=== PATIENT | female | born 1955 | race Hispanic/Latino ===

== ENCOUNTER 2016-11-16 11:52 | Outpatient (CLI) | payer MEDICARE, OTHER ==
--- NOTE | 2016-11-16 13:15 | Mammography Report ---
BILATERAL DIGITAL DIAGNOSTIC MAMMOGRAM with CAD and LEFT BREAST ULTRASOUND: 11/16/16 11:52:00 CLINICAL: Palpable left breast mass. COMPARISON:None. FINDINGS: The breasts are heterogeneously dense, which may obscure small masses and the breasts are sufficiently dense to limit the sensitivity of mammography.A 1.4 cm spiculated lower inner mass of the left breast correlates with the palpable lump. The right breast is negative. Ultrasound of the left breast (including all four quadrants and the retroareolar area) was performed and demonstrated an irregular solid hypoechoic shadowing mass at 9 o'clock 3 cm from the nipple. It measures 1.2 x 1.1 x 1.2 cm and corresponds to the mammographic mass. Ultrasound of the left axilla demonstrated no suspicious lymph nodes. IMPRESSION: Suspicious 1.2 cm left breast mass at 9 o'clock. BI-RADS CATEGORY: 5 - - Highly Suggestive of Malignancy RECOMMENDATION: Ultrasound guided needle core biopsy of the left breast. I discussed the findings and the recommendation for needle core biopsy of the left breast with the patient at the time of the examination. ACR BI-RADS MAMMOGRAPHIC CODES: 0 = Needs additional imaging evaluation; 1 = Negative; 2 = Benign; 3 = Probably benign; 4 = Suspicious; 5 = Malignant; 6 = Known biopsy-proven malignancy COMMENT: 1. Dense breast tissue, i.e., adenosis, fibrocystic changes, etc., may obscure an underlying neoplasm. 2. Approximately 10% of cancers are not detected with mammography. 3. A negative mammography report should not delay biopsy if a clinically suspicious mass is present. COMMENT: Patient follow-up letters are generated by our [employer] application.
== END 2016-11-16 11:53 | disposition home or self-care (01) ==
LOC: SPVWC 11:52
PROVIDERS: ATTEND Internal Medicine
DX: N63 Unspecified lump in breast (principal); R92.8 Other abnormal and inconclusive findings on diagnostic imaging of breast
CPT/HCPCS: 76641; G0204; 77066

== ENCOUNTER 2016-11-24 14:30 | Outpatient (CLI) | payer OTHER ==
--- NOTE | 2016-11-24 15:57 | Mammography Report ---
LEFT DIGITAL DIAGNOSTIC MAMMOGRAM: 11/24/16 14:30:00 CLINICAL: For clip placement immediately status post ultrasound biopsy. COMPARISON:11/16/16 FINDINGS: A biopsy clip is now identified within the mass at 9 o'clock. IMPRESSION: Concordant clip placement status post ultrasound biopsy. BI-RADS CATEGORY: 5 - - Highly Suggestive of Malignancy Pathology pending.
--- NOTE | 2016-11-24 15:58 | Ultrasound Report ---
ULTRASOUND GUIDED NEEDLE CORE BIOPSY LEFT BREAST WITH CLIP PLACEMENT: 11/24/16 CLINICAL: Left breast mass at 9 o'clock. COMPARISON :11/16/16 FINDINGS: The procedure was explained to the patient and informed consent was obtained. Ultrasound demonstrated the previously described solid irregular hypoechoic mass at 9 o'clock 3 cm from the nipple. I marked the breast with a felt tip marker and a time out was called. The skin was prepped with Betadine and anesthetized with 1% lidocaine. Needle core biopsy was performed through a tiny dermatotomy using ultrasound guidance, 2% lidocaine with epinephrine for deep anesthesia and a 14-gauge Achieve biopsy device. Imaging demonstrated satisfactory sampling. Three cores were obtained and placed in formalin. A clip was deployed within the mass. The patient tolerated the procedure well and there were no apparent complications. Hemostasis was achieved with gentle pressure and a sterile dressing was applied. A two view mammogram demonstrated satisfactory placement of the clip. She left the department in good condition and was given instructions for wound care and followup. IMPRESSION: Uncomplicated ultrasound guided needle core biopsy with clip placement left breast.
== END 2016-11-24 14:31 | disposition home or self-care (01) ==
LOC: SPVWC 14:30
PROVIDERS: ATTEND Internal Medicine
DX: N63 Unspecified lump in breast (principal)
CPT/HCPCS: 19083; 88305; 88361; A4648; G0206

== ENCOUNTER 2016-12-15 09:17 | Day surgery (SDC) | payer MEDICAID, OTHER ==
[~2016-12-15 09:17] MED LIST: ANCEF/STERILE WATER 2 GM/20 ML 2 GM/20 ML SYRINGE IV NR; NACL 0.9% 1000 ML 1,000 ML IV SCH; NACL BACTERIOSTATIC INFILTRATI ONE; PEPCID PO NR; ceFAZolin 2 GM in NACL 0.9% 100 ML IV ONE
[2016-12-15] MEDS ORDERED: DIPRIVAN 10 MG/ML IV ONE (09:55)
[2016-12-15] MEDS ORDERED: DILAUDID ONE (09:56)
[2016-12-15] MEDS ORDERED: MARCAINE-EPI 0.5%-1:200,000 INFILTRATI NR (10:06)
[2016-12-15] MEDS ORDERED: DECADRON IV NR (10:06)
[2016-12-15] MEDS ORDERED: SUBLIMAZE IV NR (10:07)
[2016-12-15] MEDS ORDERED: XYLOCAINE 1% 20 mL INFILTRATI NR (10:15)
--- NOTE | 2016-12-15 10:39 | Anesthesia Consultation ---
Anesthesia Consult and Med Hx Date of service: 12/15/16 - Airway Anesthetic Teeth Evaluation: Partials ROM Head & Neck: Adequate Mental/Hyoid Distance: Adequate Mallampati Class: Class II Intubation Access Assessment: Good - Pulmonary Exam CTA: Yes - Cardiac Exam Cardiac Exam: RRR - Pre-Operative Health Status ASA Pre-Surgery Classification: ASA3 Proposed Anesthetic Plan: General Nerve Block: PEC - Pulmonary Hx Smoking: Yes (CIGARETTES 1 PPD X 42 YRS, QUIT 4 YRS AGO) Hx Asthma: Yes COPD: Yes Hx Sleep Apnea: No - Cardiovascular System Hx Hypertension: Yes (FOR 10 YRS) - Other Systems Hx Cancer: Yes (LEFT BREAST, DX: 11/2016)
[2016-12-15] MEDS: VERSED IV NR ×3 (10:42→10:51)
[2016-12-15] MEDS ORDERED: NEURONTIN PO NR (11:00)
[2016-12-15] MEDS ORDERED: ZOFRAN ONE (11:30)
[2016-12-15] MEDS ORDERED: DECADRON ONE (11:30)
--- NOTE | 2016-12-15 11:47 | Short Stay Summary ---
Short Stay Documentation Date of service: 12/15/16 - History H&P: obtained from office - Allergies and Medications Current Medications: Allergies No Known Allergies Allergy (Unverified 12/09/16 16:53) Home Medications Medication Instructions Recorded Confirmed Last Taken Type ALBUTEROL Inhaler [Proair] 2 puff IH Q4H PRN 12/09/16 12/09/16 Unknown History Acetaminophen [Tylenol] 325 mg PO Q6HR PRN 12/09/16 12/09/16 Unknown History Acyclovir [Zovirax Tab] 400 mg PO BID 12/09/16 12/09/16 Unknown History Albuterol Sulfate [Albuterol 0.63% 0.63 mg IH BID PRN 12/09/16 12/09/16 Unknown History NEBS] Budesoni/Formotero 160-4.5(Nf) 2 puff IH BID 12/09/16 12/09/16 Unknown History [Symbicort 160-4.5 (Nf)] Bupropion HCl [Wellbutrin XL] 300 mg PO QAM 12/09/16 12/09/16 Unknown History LORazepam [Ativan] 1 mg PO BID PRN 12/09/16 12/09/16 Unknown History Lisinopril [Zestril] 20 mg PO QDAY 12/09/16 12/09/16 Unknown History Loratadine [Claritin] 10 mg PO DAILY 12/09/16 12/09/16 Unknown History Ranitidine HCl [Zantac 150 MG TAB] 150 mg PO QDAY PRN 12/09/16 12/09/16 Unknown History Tiotropium [Spiriva] 18 mcg IH QDAY 12/09/16 12/09/16 Unknown History Triamter/Hctz 37.5-25 mg 1 tab PO QDAY 12/09/16 12/09/16 Unknown History [Maxzide-25] busPIRone [Buspar] 10 mg PO TID 12/09/16 12/09/16 Unknown History prednisoLONE ACETATE [Pred Mild 1 drop OP 2XW 12/09/16 12/09/16 Unknown History 0.12%] HYDROcodone/APAP 5-325 [Elliston 1 each PO Q6HR PRN #30 tablet 12/15/16 Unknown Rx 5/325] Active Medications Bupivacaine HCl/Epinephrine Bitart (Marcaine-Epi 0.5%-1:200,000) 30 ml INFILTRATI ONCE NR Stop: 12/15/16 23:59 Celecoxib (Celebrex) 200 mg PO PREOP NR Stop: 12/15/16 23:59 Last Admin: 12/15/16 10:26 Dose: 200 mg Dexamethasone (Decadron) 4 mg IV ONCE NR Stop: 12/15/16 23:59 Famotidine (Pepcid) 20 mg PO PREOP NR Stop: 12/15/16 23:59 Last Admin: 12/15/16 10:15 Dose: 20 mg Fentanyl (Sublimaze) 100 mcg IV ONCE NR Stop: 12/15/16 23:59 Last Admin: 12/15/16 10:41 Dose: 100 mcg Gabapentin (Neurontin) 600 mg PO PREOP NR Stop: 12/15/16 23:59 Last Admin: 12/15/16 10:25 Dose: 600 mg Cefazolin Sodium (Ancef/Sterile Water 2 Gm/20 Ml) 2 gm in 20 mls @ 80 mls/hr IV PREOP NR Stop: 12/15/16 23:45 Sodium Chloride (Nacl 0.9% 1000 Ml) 1,000 mls @ 100 mls/hr IV DIRECT ROSE Last Admin: 12/15/16 10:16 Dose: 100 mls/hr Lidocaine (Xylocaine 1% 20 Ml) 10 ml INFILTRATI PREOP NR Stop: 12/15/16 23:59 Midazolam HCl (Versed) 2 mg IV PREOP NR Stop: 12/15/16 23:59 Last Admin: 12/15/16 10:51 Dose: 1 mg - Brief post op/procedure progress note Date of procedure: 12/15/16 Pre-op diagnosis: Left breast cancer of the upper inner quadrant Post-op diagnosis: same Procedure: Left partial mastectomy with SLNB Anesthesia: GETA Findings: Clip and mass present within radiograph specimen; SLNBx3 Surgeon: AUGUSTO AYALA Estimated blood loss: minimal Pathology: list (left partial masectomy, SLNsx3) Specimen disposition: to lab Condition: stable - Disposition Condition at discharge: Good Disposition: DISCHARGED TO HOME OR SELFCARE Short Stay Discharge Plan Activity: other (no heavy lifting) Diet: regular Wound: other (keep incision clean and dry; may shower in 24 hours; no baths, pools or lakes; do not rub or scrub incision) Follow up with: AUGUSTO AYALA MD [Staff Physician] - 7 Days Prescriptions: HYDROcodone/APAP 5-325 [Elliston 5/325] 1 each PO Q6HR PRN #30 tablet PRN Reason: Pain
[2016-12-15] MEDS ORDERED: NEO SYNEPHRINE/NS Syringe(OR USE) IV ONE (12:12)
[2016-12-15] MEDS ORDERED: XYLOCAINE MPF 2% ONE (12:13)
[2016-12-15] MEDS ORDERED: NACL 0.9% 1000 ML 1,000 ML ONE (12:23)
[2016-12-15] MEDS ORDERED: ePHEDrine SULFATE ONE (12:24)
[2016-12-15] MEDS ORDERED: NACL P/F VIAL (10 ML) 10 ML ONE (12:25)
[2016-12-15] MEDS ORDERED: WATER FOR IRRIG STERILE IR ONE (12:37)
--- NOTE | 2016-12-15 14:57 | Mammography Report ---
Specimen radiograph. Findings: A single image of the specimen confirms the presence of a biopsy clip within the specimen.
--- NOTE | 2016-12-15 15:03 | Operative Report ---
Operative Report Operative Report: Date of procedure: 12/15/2016 Pre-operative diagnosis: Left breast cancer of the upper inner quadrant Post-operative diagnosis: Same Procedure name(s): Ultrasound guided left breast partial mastectomy and sentinel lymph node biopsy Surgeon: Saundra Chavarria M.D. Anesthesia: Gen. Findings: Known breast cancer of the left breast at the 9 o'clock position 2 cm from the nipple with radiograph specimen of clip and mass present. 3 sentinel lymph nodes identified Drains: None. Complications: None Disposition: PACU in good condition Indications for operative procedure: This is a 61-year-old postmenopausal lady with newly diagnosed stage I left breast cancer ER/AL positive. Recommendations were to proceed with a left breast partial mastectomy with sentinel lymph node biopsy. Patient was to proceed with the above. Procedure detail: The patient was taken to the operating room and was laid supine. Gen. anesthesia was administered. The left breast and axilla were prepped and draped in the normal sterile operative fashion. The nipple was injected with radioisotope. The gamma probe was used to sherley the sentinel lymph node. Ultrasound was used to identify the known left breast cancer at the 9 o'clock position 2 cm from the nipple. Anesthesia placed left pectoral block prior to surgery. Timeout was performed. A 15 blade knife was made through the skin of the axilla with dissection taken down to the subcutaneous tissues with the aid of the Bovie cautery. The axillary fascia was opened. The gamma probe was inserted into the axilla with 3 sentinel lymph nodes identified that were dissected free and sent to pathology. Hemostasis was noted. Axillary fascia was approximated and closed with interrupted 3-0 Vicryl and skin closed with running 4-0 Monocryl and skin affix. Attention was then taken towards the left breast. Skin incision was made with a 15 blade knife and dissection taken down to the subcutaneous tissues. Began with raising of the superior flap taken down posterior to the pectoralis muscle followed by raising of the medial flap taken down posteriorly to the pectoralis muscle followed by raising of the inferior flap taken down posteriorly to the pectoralis muscle followed by raising of the lateral flap taken down posteriorly to the pectoralis muscle. Partial mastectomy specimen was removed from the pectoralis muscle without incident. The specimen was appropriately marked. Radiograph specimen with clip and mass present. Hemostatsis was obtained. Then continued with oncoplastic procedure with mobilization of the breast tissue appropriately for closure with the aid of the Bovie cautery. The breast tissue was approximated and closed with interrupted 3 -0 Vicryl and the subcutaneous tissues closed with interrupted 3-0 Vicryl and skin closed with a running 4-0 Monocryl and skin affix. This concluded surgery and the patient tolerated surgery very well. She was awakened from anesthesia without any complications and transferred to PACU in good condition.
[2016-12-15] MEDS ORDERED: NORCO 5/325 PO PRN (15:16)
[2016-12-15 16:14] VITALS: BP 102/57
== END 2016-12-15 16:21 | disposition home or self-care (01) ==
LOC: OR 09:17
PROVIDERS: ATTEND Surgery
DX: C50.212 Malignant neoplasm of upper-inner quadrant of left female breast (principal); J45.909 Unspecified asthma, uncomplicated; J44.9 Chronic obstructive pulmonary disease, unspecified; Z87.891 Personal history of nicotine dependence; Z17.0 Estrogen receptor positive status [ER+]
CPT/HCPCS: 19301; 38525; 64450; 76098; 78800; 88305; 88307; 88341; 88342; A9541; J0690; J1100; J1170; J2250; J2370; J2405; J2704; J3010; J7030; 88333

== ENCOUNTER 2017-02-08 13:51 | Outpatient (CLI) | payer MEDICAID ==
--- NOTE | 2017-02-08 16:26 | Mammography Report ---
BONE DEXA:02/08/17 13:51:00 CLINICAL: Postmenopausal.Recently diagnosed left breast cancer. TECHNIQUE: Two site bone DEXA performed on an Hologic scanner. FINDINGS: The average BMD of the lumbar spine L1-L4 is 0.808g/cm squared with a T-score of -2.2 and a Z-score of -0.6. The average BMD of the left hip is 0.636g/cm squared with a T-score of -2.5 and a Z-score of -1.5. IMPRESSION: 1. WHO classification: Osteopenia with increased fracture risk based on lumbar spine measurements. 2. WHO classification: Osteoporosis with high fracture risk based on left hip measurements. RECOMMENDATION: Clinical correlation and routine screening. DEFINITIONS: BMD = Bone Mineral Density T-score = BMD related to mean peak bone mass of young adult (mean expressed in Standard Deviation) Z-score = Age matched BMD expressed in SD World Health Organization (WHO) Diagnostic Criteria Normal T-score > -1 SD Osteopenia T-score between -1 and -2.4 SD Osteoporosis T-score -2.5 SD or below NOTE: BMD is not the only risk factor for fracture. One should also consider factors such as the patient's age, risk of falling, previous osteoporotic fracture, family history of osteoporotic fractures, current smoker, and low body weight. Z-scores are not calculated if >80 years of age.
== END 2017-02-08 13:52 | disposition home or self-care (01) ==
LOC: SPVWC 13:51
PROVIDERS: ATTEND Internal Medicine Hematology & Oncology
DX: M81.0 Age-related osteoporosis without current pathological fracture (principal); M85.88 Other specified disorders of bone density and structure, other site; C50.912 Malignant neoplasm of unspecified site of left female breast; Z78.0 Asymptomatic menopausal state
CPT/HCPCS: 77080

== ENCOUNTER 2017-08-03 14:16 | Outpatient (CLI) | payer OTHER ==
--- NOTE | 2017-08-05 09:38 | Mammography Report ---
LEFT DIGITAL DIAGNOSTIC MAMMOGRAM WITH CAD: 08/03/17 14:16:00 CLINICAL: Breast cancer survivor six months status post partial mastectomy. COMPARISON:11/24/16 FINDINGS: The breast is heterogeneously dense.The previously described mass has been surgically excised but there is vague increased density at the site. No architectural distortion or suspicious calcifications. Ultrasound of the left breast was performed on 08/05/17 and demonstrated a postop seroma at 9 o'clock 4 cm from the nipple. It measures 3.2 x 2.1 x 0.8 cm. IMPRESSION: No mammographic evidence of malignancy.Postop seroma. BI-RADS CATEGORY: 2 -- Benign RECOMMENDATION: Recommend bilateral mammogram when she returns for screening of the right breast. ACR BI-RADS MAMMOGRAPHIC CODES: 0 = Needs additional imaging evaluation; 1 = Negative; 2 = Benign; 3 = Probably benign; 4 = Suspicious; 5 = Malignant; 6 = Known biopsy-proven malignancy COMMENT: 1. Dense breast tissue, i.e., adenosis, fibrocystic changes, etc., may obscure an underlying neoplasm. 2. Approximately 10% of cancers are not detected with mammography. 3. A negative mammography report should not delay biopsy if a clinically suspicious mass is present. COMMENT: Patient follow-up letters are generated via our [employer] application.
== END 2017-08-03 14:17 | disposition home or self-care (01) ==
LOC: SPVWC 14:16
PROVIDERS: ATTEND Internal Medicine Hematology & Oncology
DX: N64.89 Other specified disorders of breast (principal); C50.312 Malignant neoplasm of lower-inner quadrant of left female breast
CPT/HCPCS: G0206-LT

== ENCOUNTER 2017-08-05 07:47 | Outpatient (CLI) | payer OTHER ==
--- NOTE | 2017-08-05 09:41 | Ultrasound Report ---
LEFT BREAST ULTRASOUND: 08/05/17 07:47:00 CLINICAL: Six month status post left partial mastectomy. A mammogram on 08/03/17 shows increased density at the surgical site. COMPARISON: 08/03/17 mammogram and 11/16/16 left breast ultrasound. FINDINGS: Ultrasound of the left breast(including all four quadrants and the retroareolar area) was performed and demonstrated no mass, cyst or shadowing. Post surgical scar with a seroma at 9 o'clock 4 cm from the nipple. The seroma measures approximately 3.2 x 2.1 x 0.8 cm. IMPRESSION: A 3.2 cm postop seroma and no suspicious finding. BI-RADS 2 - - Benign RECOMMENDATION: Routine mammography.
== END 2017-08-05 07:48 | disposition home or self-care (01) ==
LOC: SPVWC 07:47
PROVIDERS: ATTEND Internal Medicine Hematology & Oncology
DX: C50.312 Malignant neoplasm of lower-inner quadrant of left female breast (principal); N64.89 Other specified disorders of breast; I10 Essential (primary) hypertension; J44.9 Chronic obstructive pulmonary disease, unspecified; J45.909 Unspecified asthma, uncomplicated; F32.9 Major depressive disorder, single episode, unspecified; F41.9 Anxiety disorder, unspecified; Z90.12 Acquired absence of left breast and nipple; Z87.891 Personal history of nicotine dependence

== ENCOUNTER 2017-12-13 15:38 | Outpatient (CLI) | payer OTHER ==
--- NOTE | 2017-12-13 16:20 | Mammography Report ---
BILATERAL DIGITAL SCREENING MAMMOGRAM WITH CAD: 12/13/17 15:38:00 CLINICAL: Routine screening.Breast cancer survivor status post left partial mastectomy 12/15/16. COMPARISON:11/16/16 bilateral mammogram and 08/03/17 left mammogram. FINDINGS: The breasts are heterogeneously dense, which may obscure small masses. The left breast is smaller than the right with benign lower inner postsurgical scar. Bilateral benign vascular calcifications. No mass, suspicious architectural distortion or suspicious calcifications. IMPRESSION: No mammographic evidence of malignancy. BI-RADS CATEGORY: 2 -- Benign RECOMMENDATION: Routine mammographic screening in one year. COMMENT: Patient follow-up letters are generated via our [employer] application.
== END 2017-12-13 15:39 | disposition home or self-care (01) ==
LOC: SPVWC 15:38
PROVIDERS: ATTEND Internal Medicine Hematology & Oncology
DX: Z12.31 Encounter for screening mammogram for malignant neoplasm of breast (principal); Z90.12 Acquired absence of left breast and nipple
CPT/HCPCS: 77067